=== PATIENT | male | born 1970 | race African-American/Black ===

== ENCOUNTER 2017-01-27 11:29 | Emergency (ER) | payer OTHER ==
[2017-01-27] MEDS ORDERED: Sodium Chloride 0.9% 2.5 ML Syringe FLUSH PRN (12:24)
[2017-01-27] MEDS ORDERED: Sodium Chloride 0.9% 10 ML Syringe FLUSH PRN (12:24)
[2017-01-27] MEDS ORDERED: Sodium Chloride 0.9% 1,000 ML IV ONE (12:24)
--- NOTE | 2017-01-27 12:24 | EDM.PDOC ---
ED HPI GENERAL MEDICAL PROBLEM - General Chief Complaint: Gastrointestinal Problem Stated Complaint: STOMACH/COLD Time Seen by Provider: 01/27/17 11:42 Source of Information: Reports: Patient History Limitations: Reports: No Limitations - History of Present Illness INITIAL COMMENTS - FREE TEXT/NARRATIVE: History of present illness: [] Had a five-day history of diarrhea as watery and nonbloody having proximally 5 episodes a day. He states whenever he eats he has diarrheal within an hour. He denies any nausea or vomiting or fevers but does have chills. Review of systems: As per history of present illness and below otherwise all systems reviewed and negative. Past medical history: As per history of present illness and as reviewed below otherwise noncontributory. Surgical history: As per history of present illness and as reviewed below otherwise noncontributory. Social history: No reported history of drug or alcohol abuse. Family history: As per history of present illness and as reviewed below otherwise noncontributory. Physical exam: General: Well developed, well nourished in NAD HEENT: Atraumatic, normocephalic, pupils reactive, negative for conjunctival pallor or scleral icterus, mucous membranes moist, throat clear, neck supple, nontender, trachea midline. Lungs: Clear to auscultation, breath sounds equal bilaterally, chest nontender. Heart: S1S2, regular, negative for clicks, rubs, or JVD. Abdomen: Soft, nondistended, nontender. Negative for masses or hepatosplenomegaly. Negative for costovertebral tenderness. Pelvis: Stable nontender. Genitourinary: Deferred. Rectal: Deferred. Extremities: Atraumatic, negative for cords or calf pain. Neurovascular unremarkable. Neuro: Awake, alert, oriented. Cranial nerves II through XII unremarkable. Cerebellum unremarkable. Motor and sensory unremarkable throughout. Exam nonfocal. Diagnostics: [] Labs were checked patient was unable to sample in the ED. Therapeutics: [] Normal saline 1 L and will await results. No diarrhea While in the ED Impression: [] Diarrhea Plan: [] Stool culture kit given take, Imodium as directed followup with PMD increase fluids. Definitive disposition and diagnosis as appropriate pending reevaluation and review of above. Treatments POT SANDER: Reports: Acetaminophen Abdominal Pain Score (Numeric/FACES): 7 - Related Data Allergies Allergy/AdvReac Type Severity Reaction Status Date / Time ibuprofen Allergy Stomach Verified 02/18/15 15:19 Ache Home Meds: Home Meds Acetaminophen [Tylenol Extra Strength] 1,000 mg PO Q6H 01/27/17 [History] Past Medical History Gastrointestinal History: Reports: Other (See Below) Other Gastrointestinal History: gastrointestinal issue, had an egd in 2014, unable to explain exactly what it was for. Psychiatric History: Reports: Anxiety, Other (See Below) Other Psychiatric History: when he lived in [place], heart beating fast, gave him medications - Infectious Disease History Infectious Disease History: Reports: Chicken Pox - Past Surgical History GI Surgical History: Reports: Hernia, Inguinal Social & Family History - Family History Family Medical History: Noncontributory - Tobacco Use Smoking Status *Q: Never Smoker Second Hand Smoke Exposure: No - Caffeine Use Caffeine Use: Reports: Soda - Alcohol Use Days Per Week of Alcohol Use: 0 - Recreational Drug Use Recreational Drug Use: No ED ROS GENERAL - Review of Systems Review Of Systems: See Below (See history of present illness) ED EXAM, GI/ABD - Physical Exam Exam: See Below (See history of present illness) Course - Vital Signs Last Recorded V/S: Last Vital Signs Temp 36.9 C 01/27/17 11:59 Pulse 68 01/27/17 11:59 Resp 20 01/27/17 11:59 BP 114/55 L 01/27/17 11:59 Pulse Ox 97 01/27/17 11:59 - Orders/Labs/Meds Orders: Active Orders 24 hr Category Date Time Status CULTURE STOOL [RM] Stat Lab 01/27/17 12:21 Uncollected WBC, STOOL [OP] Stat Lab 01/27/17 12:22 Uncollected Sodium Chloride 0.9% [Saline Flush] Med 01/27/17 12:24 Active 10 ml FLUSH ASDIRECTED PRN Sodium Chloride 0.9% [Saline Flush] Med 01/27/17 12:24 Active 2.5 ml FLUSH ASDIRECTED PRN Peripheral IV Insertion Adult [OM.PC] Stat Oth 01/27/17 12:24 Ordered Medication Orders Sodium Chloride (Saline Flush) 10 ml FLUSH ASDIRECTED PRN PRN Reason: Keep Vein Open Sodium Chloride (Saline Flush) 2.5 ml FLUSH ASDIRECTED PRN PRN Reason: Keep Vein Open Labs: Laboratory Tests 01/27/17 01/27/17 Range/Units 12:35 12:35 WBC 6.18 (4.0-11.0) K/uL RBC 5.28 (4.50-5.90) M/uL Hgb 12.1 L (13.0-17.0) g/dL Hct 38.5 (38.0-50.0) % MCV 72.9 L (80.0-98.0) fL MCH 22.9 L (27.0-32.0) pg MCHC 31.4 (31.0-37.0) g/dL RDW Std Deviation 38.4 (28.0-62.0) fl RDW Coeff of Jona 15 (11.0-15.0) % Plt Count 207 (150-400) K/uL MPV 9.40 (7.40-12.00) fL Neut % (Auto) 38.6 L (48.0-80.0) % Lymph % (Auto) 51.1 H (16.0-40.0) % [place] % (Auto) 9.2 (0.0-15.0) % Eos % (Auto) 0.8 (0.0-7.0) % Baso % (Auto) 0.3 (0.0-1.5) % Neut # (Auto) 2.4 (1.4-5.7) K/uL Lymph # (Auto) 3.2 H (0.6-2.4) K/uL [place] # (Auto) 0.6 (0.0-0.8) K/uL Eos # (Auto) 0.1 (0.0-0.7) K/uL Baso # (Auto) 0.0 (0.0-0.1) K/uL Nucleated RBC % 0.0 /100WBC Nucleated RBCs # 0 K/uL Sodium 140 (136-146) mmol/L Potassium 4.1 (3.5-5.1) mmol/L Chloride 107 (98-110) mmol/L Carbon Dioxide 25 (21-31) mmol/L BUN 10 (6.0-23.0) mg/dL Creatinine 1.1 (0.6-1.5) mg/dL Est Cr Clr Drug Dosing 76.78 mL/min Estimated GFR (MDRD) > 60.0 ml/min Glucose 93 (60-110) mg/dL Calcium 8.9 (8.8-10.8) mg/dL Total Bilirubin 0.6 (0.1-1.5) mg/dL AST 23 (5-40) IU/L ALT 22 (8-54) IU/L Alkaline Phosphatase 77 (40-150) Total Protein 7.5 (6.0-8.0) g/dL Albumin 4.0 (3.5-5.0) g/dL Globulin 3.5 (2.0-3.5) g/dL Albumin/Globulin Ratio 1.1 L (1.3-2.8) Meds: Medications Generic Name Dose Route Start Last Admin Trade Name Freq PRN Reason Stop Dose Admin Sodium Chloride 10 ml 01/27/17 12:24 Saline Flush FLUSH ASDIRECTED PRN Keep Vein Open Sodium Chloride 2.5 ml 01/27/17 12:24 Saline Flush FLUSH ASDIRECTED PRN Keep Vein Open Discontinued Medications Generic Name Dose Route Start Last Admin Trade Name Freq PRN Reason Stop Dose Admin Sodium Chloride 1,000 mls @ 999 mls/hr 01/27/17 12:24 01/27/17 12:53 Normal Saline IV 01/27/17 13:24 999 mls/hr .Bolus ONE Administration Departure - Departure Time of Disposition: 14:01 Disposition: Home, Self-Care 01 Condition: good Clinical Impression: Diarrhea Qualifiers: Diarrhea type: infectious Qualified Code(s): A09 - Infectious gastroenteritis and colitis, unspecified - Discharge Information Referrals: PCP,None [Primary Care Provider] - Forms: ED Department Discharge Additional Instructions: The following information is given to patients seen in the emergency department who are being discharged to home. This information is to outline your options for follow-up care. We provide all patients seen in our emergency department with a follow-up referral. The need for follow-up, as well as the timing and circumstances, are variable depending upon the specifics of your emergency department visit. If you don't have a primary care physician on staff, we will provide you with a referral. We always advise you to contact your personal physician following an emergency department visit to inform them of the circumstance of the visit and for follow-up with them and/or the need for any referrals to a consulting specialist. The emergency department will also refer you to a specialist when appropriate. This referral assures that you have the opportunity for follow-up care with a specialist. All of these measure are taken in an effort to provide you with optimal care, which includes your follow-up. Under all circumstances we always encourage you to contact your private physician who remains a resource for coordinating your care. When calling for follow-up care, please make the office aware that this follow-up is from your recent emergency room visit. If for any reason you are refused follow-up, please contact the [facility] Emergency Department at and asked to speak to the emergency department charge nurse. Imodium as directed, increase fluids, follow up with primary care, and stool sample to the lab when possible [facility] [address] [place] [id number] - My Orders Last 24 Hours: My Active Orders 01/27/17 12:21 CULTURE STOOL [RM] Stat 01/27/17 12:22 WBC, STOOL [OP] Stat 01/27/17 12:24 Sodium Chloride 0.9% [Saline Flush] 10 ml FLUSH ASDIRECTED PRN Sodium Chloride 0.9% [Saline Flush] 2.5 ml FLUSH ASDIRECTED PRN Peripheral IV Insertion Adult [OM.PC] Stat - Assessment/Plan Last 24 Hours: My Active Orders 01/27/17 12:21 CULTURE STOOL [RM] Stat 01/27/17 12:22 WBC, STOOL [OP] Stat 01/27/17 12:24 Sodium Chloride 0.9% [Saline Flush] 10 ml FLUSH ASDIRECTED PRN Sodium Chloride 0.9% [Saline Flush] 2.5 ml FLUSH ASDIRECTED PRN Peripheral IV Insertion Adult [OM.PC] Stat
[2017-01-27 13:08] LABS: CHLORIDE,CL 107 mmol/L (98-110); SODIUM,NA 140 mmol/L (136-146)
[2017-01-27 14:23] VITALS: BP 116/68
== END 2017-01-27 14:10 | disposition home or self-care (01) ==
LOC: MW.ED 11:29
DX: A09 Infectious gastroenteritis and colitis, unspecified (principal); F41.9 Anxiety disorder, unspecified; Z88.6 Allergy status to analgesic agent
CPT/HCPCS: 36415; 80053; 85025; 96360; 99284; J7040; 99283

== ENCOUNTER 2017-12-29 10:41 | Emergency (ER) | payer SELFPAY ==
[2017-12-29] MEDS ORDERED: Aspirin 81 MG Tab.Chew PO ONE (10:53)
[2017-12-29] MEDS ORDERED: Sodium Chloride 0.9% 1,000 ML IV ONE (10:53)
[2017-12-29] MEDS ORDERED: Alum Hydrox/Mag Hydrox/Simeth 15 ML, Lidocaine 2% 5 ML PO ONE ×2 (10:58)
--- NOTE | 2017-12-29 10:58 | EDM.PDOC ---
ED HPI GENERAL MEDICAL PROBLEM - General Chief Complaint: Chest Pain Stated Complaint: CHEST PAIN Time Seen by Provider: 12/29/17 10:55 Source of Information: Reports: Patient History Limitations: Reports: No Limitations - History of Present Illness INITIAL COMMENTS - FREE TEXT/NARRATIVE: HISTORY AND PHYSICAL: History of present illness: Patient is a 47-year-old male who presents to the emergency room today with complaints of right shoulder/arm pain 3 weeks and midsternal chest pain for the past 3 days. He reports that he has a history of GERD and is unsure if his chest pain is related to acid reflux. Reports nothing improves or makes the pain worse. He denies any fever, chills, shortness of breath, diaphoresis, cough , abdominal pain, nausea, vomiting, diarrhea or constipation. No cardiac or respiratory history. No history of smoking. Review of systems: As per history of present illness and below otherwise all systems reviewed and negative. Past medical history: As per history of present illness and as reviewed below otherwise noncontributory. Surgical history: As per history of present illness and as reviewed below otherwise noncontributory. Social history: No reported history of drug or alcohol abuse. Family history: As per history of present illness and as reviewed below otherwise noncontributory. Physical exam: General: Well-developed and well-nourished 47-year-old -[place] African male. Alert and oriented. Nontoxic appearing and in no acute distress. HEENT: Atraumatic, normocephalic, pupils equal and reactive bilaterally, negative for conjunctival pallor or scleral icterus, mucous membranes moist, throat clear, neck supple, nontender, trachea midline. No drooling or trismus noted. No meningeal signs Lungs: Clear to auscultation, breath sounds equal bilaterally, chest nontender. Non-reproducible. Heart: S1S2, regular rate and rhythm without overt murmur Abdomen: Soft, nondistended, nontender. Negative for masses or hepatosplenomegaly. Negative for costovertebral tenderness. Pelvis: Stable nontender. Genitourinary: Deferred. Rectal: Deferred. Skin: Intact, warm, dry. No lesions or rashes noted. Extremities: Atraumatic, moves all extremities per self without pain or difficulty negative for cords or calf pain. Neurovascular unremarkable. Neuro: Awake, alert, oriented. Cranial nerves II through XII unremarkable. Cerebellum unremarkable. Motor and sensory unremarkable throughout. Exam nonfocal. Notes: Ibuprofen is not a true allergy, he states he gets an "upset stomach". Will give ASA per our chest pain protocol. Lab, EKG and chest x-ray are unremarkable. I did share this with the patient. I cannot differentiate if his pain is due to musculoskeletal involvement. Discussed admission with the patient, he would like to stay overnight. Dr. Saenz will be consulted [id number]:Dr. Saenz was consulted on this case. He is agreeable to keeping the patient for observation with telemetry. Diagnostics: CBC, CMP, troponin, EKG, one view chest x-ray Therapeutics: IV fluid, GI cocktail, aspirin, nitroglycerin, nitro paste, Toradol Impression: Chest pain rule out [place] Plan: Observation admission to [facility] with telemetry Definitive disposition and diagnosis as appropriate pending reevaluation and review of above. Chest Pain Score (Numeric/FACES): 4 - Related Data Allergies Allergy/AdvReac Type Severity Reaction Status Date / Time ibuprofen Allergy Stomach Verified 12/29/17 10:51 Ache Home Meds: Home Meds Acetaminophen [Tylenol Extra Strength] 1,000 mg PO Q6H PRN 01/27/17 [History] Past Medical History Gastrointestinal History: Reports: Other (See Below) Other Gastrointestinal History: gastrointestinal issue, had an egd in 2014, unable to explain exactly what it was for. Psychiatric History: Reports: Anxiety, Other (See Below) Other Psychiatric History: when he lived in [place], heart beating fast, gave him medications - Infectious Disease History Infectious Disease History: Reports: Chicken Pox - Past Surgical History GI Surgical History: Reports: Hernia, Inguinal Social & Family History - Family History Family Medical History: Noncontributory - Tobacco Use Smoking Status *Q: Never Smoker Second Hand Smoke Exposure: No - Caffeine Use Caffeine Use: Reports: Soda - Alcohol Use Days Per Week of Alcohol Use: 0 - Recreational Drug Use Recreational Drug Use: No ED ROS GENERAL - Review of Systems Review Of Systems: ROS reveals no pertinent complaints other than HPI. ED EXAM, GENERAL - Physical Exam Exam: See Below (See dictation) Course - Vital Signs Last Recorded V/S: Last Vital Signs Temp 97.2 F 12/29/17 10:48 Pulse 98 12/29/17 10:48 Resp 20 12/29/17 10:48 BP 128/76 04/16/18 11:36 Pulse Ox 98 12/29/17 10:48 - Orders/Labs/Meds Orders: Active Orders 24 hr Category Date Time Status Admission Status [Patient Status] [ADT] Stat ADT 12/29/17 11:45 Ordered EKG Documentation Completion [RC] STAT Care 12/29/17 10:52 Active Sodium Chloride 0.9% [Normal Saline] 1,000 ml Med 12/29/17 10:53 Active IV STAT Medication Orders Sodium Chloride (Normal Saline) 1,000 mls @ 999 mls/hr IV STAT ONE Stop: 12/29/17 11:53 Last Admin: 12/29/17 11:02 Dose: 999 mls/hr Labs: Laboratory Tests 12/29/17 12/29/17 Range/Units 10:45 10:45 WBC 6.93 (4.0-11.0) K/uL RBC 5.57 (4.50-5.90) M/uL Hgb 12.8 L (13.0-17.0) g/dL Hct 39.9 (38.0-50.0) % MCV 71.6 L (80.0-98.0) fL MCH 23.0 L (27.0-32.0) pg MCHC 32.1 (31.0-37.0) g/dL RDW Std Deviation 35.2 (28.0-62.0) fl RDW Coeff of Jona 14 (11.0-15.0) % Plt Count 202 (150-400) K/uL MPV 9.70 (7.40-12.00) fL Neut % (Auto) 29.8 L (48.0-80.0) % Lymph % (Auto) 57.9 H (16.0-40.0) % Gregory % (Auto) 10.0 (0.0-15.0) % Eos % (Auto) 1.9 (0.0-7.0) % Baso % (Auto) 0.4 (0.0-1.5) % Neut # (Auto) 2.1 (1.4-5.7) K/uL Lymph # (Auto) 4.0 H (0.6-2.4) K/uL Gregory # (Auto) 0.7 (0.0-0.8) K/uL Eos # (Auto) 0.1 (0.0-0.7) K/uL Baso # (Auto) 0.0 (0.0-0.1) K/uL Nucleated RBC % 0.0 /100WBC Nucleated RBCs # 0 K/uL Sodium 139 (136-148) mmol/L Potassium 4.0 (3.5-5.1) mmol/L Chloride 105 (98-107) mmol/L Carbon Dioxide 25.9 (21.0-32.0) mmol/L BUN 10 (7.0-18.0) mg/dL Creatinine 1.1 (0.8-1.3) mg/dL Est Cr Clr Drug Dosing 73.31 mL/min Estimated GFR (MDRD) > 60.0 ml/min Glucose 110 H (74-106) mg/dL Calcium 8.7 (8.5-10.1) mg/dL Total Bilirubin 0.4 (0.2-1.0) mg/dL AST 26 (15-37) IU/L ALT 30 (14-63) IU/L Alkaline Phosphatase 83 (46-116) U/L Troponin I < 0.050 (0.000-0.056) ng/mL Total Protein 7.6 (6.4-8.2) g/dL Albumin 3.7 (3.4-5.0) g/dL Globulin 3.9 H (2.0-3.5) g/dL Albumin/Globulin Ratio 1.0 L (1.3-2.8) Meds: Medications Generic Name Dose Route Start Last Admin Trade Name Freq PRN Reason Stop Dose Admin Sodium Chloride 1,000 mls @ 999 mls/hr 12/29/17 10:53 12/29/17 11:02 Normal Saline IV 12/29/17 11:53 999 mls/hr STAT ONE Administration Discontinued Medications Generic Name Dose Route Start Last Admin Trade Name Freq PRN Reason Stop Dose Admin Aspirin 324 mg 12/29/17 10:53 12/29/17 11:13 Aspirin PO 12/29/17 10:54 324 mg ONETIME ONE Administration Al Hydroxide/Mg Hydroxide 15 0 ml 12/29/17 10:58 12/29/17 11:10 ml/ Lidocaine HCl 5 ml PO 12/29/17 10:59 20 each ONETIME ONE Administration Ketorolac Tromethamine 30 mg 12/29/17 11:44 Toradol IVPUSH 12/29/17 11:45 ONETIME ONE Nitroglycerin 0.4 mg 12/29/17 10:53 12/29/17 11:32 Nitrostat SL 0.4 mg Q5M PRN Administration Chest Pain Nitroglycerin 1 gm 12/29/17 11:44 Nitro-Bid 2% TOP 12/29/17 11:45 ONETIME ONE Departure - Departure Time of Disposition: 11:48 Disposition: Home, Self-Care 01 Clinical Impression: Chest pain, rule out acute myocardial infarction Forms: ED Department Discharge - My Orders Last 24 Hours: My Active Orders 12/29/17 10:52 EKG Documentation Completion [RC] STAT 12/29/17 10:53 Sodium Chloride 0.9% [Normal Saline] 1,000 ml IV STAT 12/29/17 11:45 Admission Status [Patient Status] [ADT] Stat - Assessment/Plan Last 24 Hours: My Active Orders 12/29/17 10:52 EKG Documentation Completion [RC] STAT 12/29/17 10:53 Sodium Chloride 0.9% [Normal Saline] 1,000 ml IV STAT 12/29/17 11:45 Admission Status [Patient Status] [ADT] Stat
[2017-12-29] MEDS: Nitroglycerin 0.4 MG Tab.SL SL PRN ×3 (11:21→11:32)
[2017-12-29 11:33] LABS: CHLORIDE,CL 105 mmol/L (98-107); SODIUM,NA 139 mmol/L (136-148)
--- NOTE | 2017-12-29 11:39 | CR ---
EXAMINATION: Portable chest radiograph. HISTORY: Chest pain. FINDINGS: The trachea is midline. The cardiomediastinal silhouette is within normal limits. No pulmonary infilt rates, effusions or pneumothorax. Osseous structures appear unremarkable. IMPRESSION: No acute cardiopulmonary process.
[2017-12-29] MEDS ORDERED: Nitroglycerin 2% Oint 1 GM UD Packet TOP ONE (11:44)
[2017-12-29] MEDS ORDERED: Ketorolac 30 MG/ML SDV IVPUSH ONE (11:44)
[2017-12-29 13:48] VITALS: BP 143/84
== END 2017-12-29 12:10 | disposition home or self-care (01) ==
LOC: MW.ED 10:41
DX: R07.9 Chest pain, unspecified (principal); Z88.6 Allergy status to analgesic agent
CPT/HCPCS: 36415; 71045; 80053; 84484; 85025; 96361; 96374; 99285; A9270; J1885; J7040

== ENCOUNTER 2018-11-11 09:48 | Emergency (ER) | payer OTHER, BC ==
[2018-11-11] MEDS ORDERED: Ketorolac 60 MG/2 ML SDV IM ONE (10:07)
--- NOTE | 2018-11-11 10:09 | EDM.PDOC ---
ED HPI GENERAL MEDICAL PROBLEM - General Chief Complaint: Upper Extremity Injury/Pain Stated Complaint: RIGHT SHOULDER PAIN Time Seen by Provider: 11/11/18 10:03 Source of Information: Reports: Patient History Limitations: Reports: No Limitations - History of Present Illness INITIAL COMMENTS - FREE TEXT/NARRATIVE: HISTORY AND PHYSICAL: History of present illness: Patient is a 48-year-old male here with complaint of right shoulder pain x 3-4 days. He states denies injury or trauma but states he does a lot of heaving lifting at work. He reports pain increased last night prompting him to come in to the ED. He did take an aleve last night which helped. He denies distal pain, numbness, or tingling. Review of systems: As per history of present illness and below otherwise all systems reviewed and negative. Past medical history: As per history of present illness and as reviewed below otherwise noncontributory. Surgical history: As per history of present illness and as reviewed below otherwise noncontributory. Social history: No reported history of drug or alcohol abuse. Family history: As per history of present illness and as reviewed below otherwise noncontributory. Physical exam: General: Patient sitting comfortably in no acute distress and nontoxic appearing HEENT: Atraumatic, normocephalic, pupils reactive, negative for conjunctival pallor or scleral icterus, mucous membranes moist, throat clear, neck supple, nontender, trachea midline. No meningeal signs. Lungs: Clear to auscultation, breath sounds equal bilaterally, chest nontender. Heart: S1S2, regular, negative for clicks, rubs, or overt murmur. Abdomen: Soft, nondistended, nontender. Negative for masses or hepatosplenomegaly. Negative for costovertebral tenderness. Pelvis: Stable nontender. Genitourinary: Deferred. Rectal: Deferred. Extremities: Pain to palpation of anterior right shoulder near AC joint. He has full ROM of the shoulder and reports pain with adduction and internal rotation. [employer] strength 5/5 bilaterally. Atraumatic, negative for cords or calf pain. Neurovascular unremarkable. Neuro: Awake, alert, oriented. Cranial nerves II through XII unremarkable. Cerebellum unremarkable. Motor and sensory unremarkable throughout. Exam nonfocal. Notes: Diagnostics: x-ray right shoulder Therapeutics: Toradol 60mg IM Prescriptions: Impression: Right shoulder pain Plan: 1. Ice, motrin or tylenol as needed 2. Follow up with orthopedics, call the number provided to schedule an appointment 3. Return to ED as needed as discussed Definitive disposition and diagnosis as appropriate pending reevaluation and review of above. Right Shoulder Pain Score (Numeric/FACES): 6 - Related Data Allergies Allergy/AdvReac Type Severity Reaction Status Date / Time ibuprofen Allergy Stomach Verified 11/11/18 09:58 Ache Home Meds: Home Meds Acetaminophen [Tylenol Extra Strength] 1,000 mg PO Q6H PRN 01/27/17 [History] Meclizine [Antivert] 25 mg PO Q6H PRN #30 tab.chew 06/22/18 [Rx] Past Medical History Gastrointestinal History: Reports: Other (See Below) Other Gastrointestinal History: gastrointestinal issue, had an egd in 2014, unable to explain exactly what it was for. Psychiatric History: Reports: Anxiety, Other (See Below) Other Psychiatric History: when he lived in [place], heart beating fast, gave him medications - Infectious Disease History Infectious Disease History: Reports: Chicken Pox - Past Surgical History GI Surgical History: Reports: Hernia, Inguinal Social & Family History - Family History Family Medical History: Noncontributory - Tobacco Use Smoking Status *Q: Never Smoker - Caffeine Use Caffeine Use: Reports: Soda - Recreational Drug Use Recreational Drug Use: No Review of Systems - Review of Systems Review Of Systems: ROS reveals no pertinent complaints other than HPI. ED EXAM, GENERAL - Physical Exam Exam: See Below (see dictation) Course - Vital Signs Last Recorded V/S: Last Vital Signs Temp 97.8 F 11/11/18 09:54 Pulse 59 L 11/11/18 09:54 Resp 16 11/11/18 09:54 BP 143/83 H 11/11/18 09:54 Pulse Ox 94 L 11/11/18 09:54 - Orders/Labs/Meds Meds: Medications Discontinued Medications Generic Name Dose Route Start Last Admin Trade Name Freq PRN Reason Stop Dose Admin Ketorolac Tromethamine 60 mg 11/11/18 10:07 11/11/18 10:47 Toradol IM 11/11/18 10:08 60 mg ONETIME ONE Administration Departure - Departure Time of Disposition: 10:54 Disposition: Home, Self-Care 01 Condition: Good Clinical Impression: Right shoulder pain - Discharge Information Referrals: PCP,None [Primary Care Provider] - Forms: ED Department Discharge Additional Instructions: The following information is given to patients seen in the emergency department who are being discharged to home. This information is to outline your options for follow-up care. We provide all patients seen in our emergency department with a follow-up referral. The need for follow-up, as well as the timing and circumstances, are variable depending upon the specifics of your emergency department visit. If you don't have a primary care physician on staff, we will provide you with a referral. We always advise you to contact your personal physician following an emergency department visit to inform them of the circumstance of the visit and for follow-up with them and/or the need for any referrals to a consulting specialist. The emergency department will also refer you to a specialist when appropriate. This referral assures that you have the opportunity for follow-up care with a specialist. All of these measure are taken in an effort to provide you with optimal care, which includes your follow-up. Under all circumstances we always encourage you to contact your private physician who remains a resource for coordinating your care. When calling for follow-up care, please make the office aware that this follow-up is from your recent emergency room visit. If for any reason you are refused follow-up, please contact the [facility] Emergency Department at and asked to speak to the emergency department charge nurse. [facility] [address], [address] [place] [address] 1. Ice, motrin or tylenol as needed 2. Follow up with orthopedics, call the number provided to schedule an appointment 3. Return to ED as needed as discussed
--- NOTE | 2018-11-11 10:52 | CR ---
EXAMINATION: Right shoulder HISTORY: Pain COMPARISON: None TECHNIQUE: 3 views FINDINGS/IMPRESSION: There is no acute osseous abnormality, dislocation, or fracture. Bone mineralization and joint spaces are preserved. Mild acromioclavicular osteoarthritic changes.
[2018-11-11 11:37] VITALS: BP 144/93
== END 2018-11-11 11:05 | disposition home or self-care (01) ==
LOC: MW.ED 09:48
DX: M25.511 Pain in right shoulder (principal); Z88.6 Allergy status to analgesic agent
CPT/HCPCS: 73030; 96372; 99283; J1885

== ENCOUNTER 2020-05-16 12:51 | Emergency (ER) | payer SELFPAY ==
--- NOTE | 2020-05-16 13:27 | EDM.PDOC ---
ED HPI GENERAL MEDICAL PROBLEM - General Chief Complaint: Gastrointestinal Problem Stated Complaint: ACID REFLUX Time Seen by Provider: 05/16/20 13:05 Source of Information: Reports: Patient History Limitations: Reports: No Limitations - History of Present Illness INITIAL COMMENTS - FREE TEXT/NARRATIVE: Notes to the emergency room reporting "acid reflux". The patient states that "when I think too much" I get acid reflux. He states that he has been having trouble with his landlord and his living arrangements. This is causing him anxiety which precipitates acid reflux. He states that he took some Mylanta and some Tylenol but still has some epigastric pain that radiates over to the right axilla. He denies shortness of breath, sweating, nausea, radiation of the pain to the back neck or arms. He has had this problem before. He has no other medical problems. Note, the patient states that he got his omeprazole from a friend and has not been taking it in the last couple of days. right side of chest Pain Score (Numeric/FACES): 5 - Related Data Allergies Allergy/AdvReac Type Severity Reaction Status Date / Time ibuprofen Allergy Stomach Verified 05/16/20 13:03 Ache Home Meds: Home Meds Acetaminophen [Tylenol Extra Strength] 1,000 mg PO Q6H PRN 01/27/17 [History] Esomeprazole Magnesium [Nexium 24Hr] 20 mg PO DAILY #14 tablet. 05/16/20 [Rx] Mag Hydrox/Aluminum Hyd/Simeth [Mylanta Maximum Strength Liq] 30 ml PO ASDIRECTED 05/16/20 [History] Omeprazole mg PO DAILY 05/16/20 [History] Past Medical History Gastrointestinal History: Reports: GERD, Other (See Below) Other Gastrointestinal History: gastrointestinal issue, had an egd in 2014, unable to explain exactly what it was for. Psychiatric History: Reports: Anxiety, Other (See Below) Other Psychiatric History: when he lived in [place], heart beating fast, gave him medications - Infectious Disease History Infectious Disease History: Reports: Chicken Pox - Past Surgical History GI Surgical History: Reports: Hernia, Inguinal Social & Family History - Family History Family Medical History: Noncontributory - Tobacco Use Smoking Status *Q: Never Smoker - Caffeine Use Caffeine Use: Reports: None - Recreational Drug Use Recreational Drug Use: No ED ROS GENERAL - Review of Systems Review Of Systems: Comprehensive ROS is negative, except as noted in HPI. ED EXAM, GI/ABD - Physical Exam Exam: See Below Exam Limited By: No Limitations General Appearance: Alert, No Apparent Distress Ears: Normal External Exam Nose: Normal Inspection Throat/Mouth: Normal Inspection Head: Atraumatic, Normocephalic Neck: Normal Inspection Respiratory/Chest: No Respiratory Distress, Lungs Clear, Normal Breath Sounds Cardiovascular: Normal Peripheral Pulses, Regular Rate, Rhythm GI/Abdominal Exam: Soft, Non-Tender, No Distention Back Exam: Normal Inspection Extremities: Normal Inspection Neurological: Alert, Oriented, Normal Cognition Psychiatric: Normal Affect, Normal Mood Skin Exam: Warm, Dry, Intact, Normal Color, No Rash Lymphatic: No Adenopathy Course - Vital Signs Last Recorded V/S: Last Vital Signs Temp 35.6 C L 05/16/20 13:03 Pulse 56 L 05/16/20 13:03 Resp 17 05/16/20 13:03 BP 161/95 H 05/16/20 13:03 Pulse Ox 98 05/16/20 13:03 - Orders/Labs/Meds Labs: Laboratory Tests 05/16/20 Range/Units 13:34 Sodium 137 (136-148) mmol/L Potassium 3.7 (3.5-5.1) mmol/L Chloride 103 (98-107) mmol/L Carbon Dioxide 25.2 (21.0-32.0) mmol/L BUN 14 (7.0-18.0) mg/dL Creatinine 1.1 (0.8-1.3) mg/dL Est Cr Clr Drug Dosing 71.69 mL/min Estimated GFR (MDRD) > 60.0 ml/min Glucose 108 H (74-106) mg/dL Calcium 8.9 (8.5-10.1) mg/dL Troponin I < 0.050 (0.000-0.056) ng/mL - Re-Assessments/Exams Free Text/Narrative Re-Assessment/Exam: 05/16/20 14:22 The patient states that actually his pain was pretty good here in the emergency room and that he has none now. He states he mostly gets at night when he lays down and sometimes he gets an ice pack and puts it on his chest along with taking a dose of Mylanta. Departure - Departure Time of Disposition: 14:23 Disposition: Home, Self-Care 01 Condition: Good Clinical Impression: GERD (gastroesophageal reflux disease) Qualifiers: Esophagitis presence: esophagitis presence not specified Qualified Code(s): K21.9 - Gastro-esophageal reflux disease without esophagitis - Discharge Information Referrals: PCP,None [Primary Care Provider] - [facility] [Outside] [facility] [Outside] Forms: ED Department Discharge Additional Instructions: The following information is given to patients seen in the emergency department who are being discharged to home. This information is to outline your options for follow-up care. We provide all patients seen in our emergency department with a follow-up referral. The need for follow-up, as well as the timing and circumstances, are variable depending upon the specifics of your emergency department visit. If you don't have a primary care physician on staff, we will provide you with a referral. We always advise you to contact your personal physician following an emergency department visit to inform them of the circumstance of the visit and for follow-up with them and/or the need for any referrals to a consulting specialist. The emergency department will also refer you to a specialist when appropriate. This referral assures that you have the opportunity for follow-up care with a specialist. All of these measure are taken in an effort to provide you with optimal care, which includes your follow-up. Under all circumstances we always encourage you to contact your private physician who remains a resource for coordinating your care. When calling for follow-up care, please make the office aware that this follow-up is from your recent emergency room visit. If for any reason you are refused follow-up, please contact the [facility] Emergency Department at and asked to speak to the emergency department charge nurse. 1. You may take Mylanta for your acid reflux symptoms 2. Take your Nexium before breakfast with a glass of water 3. Follow-up in primary care to evaluate your anxiety and GERD as we discussed. Anxiety producing situations along with lying flat precipitate your symptoms. Sepsis Event Note (ED) - Evaluation Sepsis Screening Result: No Definite Risk - Focused Exam Vital Signs: Vital Signs Temp Pulse Resp BP Pulse Ox 05/16/20 13:03 35.6 C L 56 L 17 161/95 H 98
[2020-05-16 14:09] LABS: BLOOD UREA NITROGEN,BUN 14 mg/dL (7.0-18.0); CARBON DIOXIDE,CO2 25.2 mmol/L (21.0-32.0); CHLORIDE,CL 103 mmol/L (98-107); GLUCOSE RANDOM 108 mg/dL (74-106); POTASSIUM,K 3.7 mmol/L (3.5-5.1); SODIUM,NA 137 mmol/L (136-148)
[2020-05-16 15:15] VITALS: BP 165/95; PULSE 57
== END 2020-05-16 14:36 | disposition home or self-care (01) ==
LOC: MW.ED 12:51
DX: K21.9 Gastro-esophageal reflux disease without esophagitis (principal); Z88.6 Allergy status to analgesic agent; Z79.899 Other long term (current) drug therapy
CPT/HCPCS: 36415; 80048; 84484; 93005; 99282; 99284-25

== ENCOUNTER 2020-12-11 10:58 | Emergency (ER) | payer BC, OTHER ==
[2020-12-11 11:07] VITALS: BP 146/78; PULSE 70
--- NOTE | 2020-12-11 11:17 | EDM.PDOC ---
ED HPI GENERAL MEDICAL PROBLEM - General Chief Complaint: Cardiovascular Problem Stated Complaint: HIGH BP Time Seen by Provider: 12/11/20 11:07 Source of Information: Reports: Patient History Limitations: Reports: No Limitations - History of Present Illness INITIAL COMMENTS - FREE TEXT/NARRATIVE: HISTORY AND PHYSICAL: History of present illness: Patient is a 50-year-old male who presents to the emergency room with concerns of an elevated blood pressure reading. He states he was at [facility] and chose to have his blood pressure checked and states it was 140s over 80s. The i nformation on the machine states he should have this reevaluated by his doctor. He states he does not have a primary care doctor so he decided to come to the emergency room for further evaluation. He denies any concerns or symptoms related to his visit today. Patient denies any fever, chills, headache, change in vision, syncope or near syncope. Denies any chest pain, back pain, shortness of breath or cough. Denies any abdominal pain, nausea, vomiting, diarrhea, constipation or dysuria. Has not noted any blood in urine or stool. Patient has been eating and drinking appropriately. No personal history of heart disease or sudden cardiac in family. Review of systems: As per history of present illness and below otherwise all systems reviewed and negative. Past medical history: As per history of present illness and as reviewed below otherwise noncontributory. Surgical history: As per history of present illness and as reviewed below otherwise noncontributory. Social history: See social history for further information Family history: As per history of present illness and as reviewed below otherwise noncontributory. Physical exam: General: Well developed and well nourished 50-year-old black male. Alert and orientated x 3. Nontoxic in appearance and in no acute distress. Vital signs are stable and have been reviewed by me. Nursing notes were reviewed. HEENT: Atraumatic, normocephalic, pupils equal and reactive bilaterally, negative for conjunctival pallor or scleral icterus, mucous membranes moist, TMs normal bilaterally, throat clear, neck supple, nontender, trachea midline. No drooling or trismus noted. No meningeal signs. No hot potato voice noted. Lungs: Clear to auscultation bilaterally. No wheezes, rales, or rhonchi. Chest nontender. Normal work of breathing, no accessory muscles used. Heart: S1S2, regular rate and rhythm without overt murmur, gallops, or rubs. No JVD. No peripheral edema Abdomen: Soft, nondistended, nontender. Normoactive bowel sounds. Negative for masses or costovertebral tenderness. Pelvis: Stable nontender. Genitourinary/Rectal: Deferred. Skin: Intact, warm, dry. No lesions or rashes noted. Hematologic: No petechiae or purpra. Mucosa appropriate color and normal nail bed color and refill. Extremities: Atraumatic, moves all extremities per self without difficulty or deficits, negative for cords or calf pain. Neurovascular unremarkable. Neuro: Awake, alert, oriented. Cranial nerves II through XII unremarkable. Cerebellum unremarkable. Motor and sensory unremarkable throughout. Exam nonfocal. Psychiatric: Mood and affect are appropriate. Normal thought process. Answering questions appropriately. Notes: *This patient was seen and evaluated during the 2019 SARS-CoV-2 novel coronavirus pandemic period. Community viral transmission is ongoing at time of this encounter and the emergency department is operating under pandemic response procedures. Patient's physical exam is within normal limits. His blood pressure does not require any immediate treatment, 141/72 and pulse 70. EKG is unchanged from previous EKG. He is asymptomatic. Nursing has set him up with a primary care provider for reevaluation and possible blood pressure management if his readings remain borderline. I have talked with the patient about today's findings, in addition to providing specific details for plan of care. Reassessment at the time of disposition demonstrates that the patient is in no acute distress. The patient is stable for discharge, counseling was provided and we discussed in great detail signs and symptoms that would prompt them to return to the Emergency Department. Medication, follow up and supportive care measures were reviewed and discussed. Voices understanding and is agreeable to plan of care. Denies any further questions or concerns at this time. Diagnostics: EKG Therapeutics: None Prescription: None Impression: Encounter for medical screening Plan: 1. You were evaluated today on an emergent basis. Your BP was mildly elevated/borderline. We typically will not treat those numbers in the ER, but we have made you an appointment with a primary care provider for re-evaluation and possible medication management. 2. You can alternate Tylenol and ibuprofen as needed for pain and fever management. 3. If your symptoms should worsen, new symptoms develop or any of the signs and symptoms we discussed should arise please return to the emergency room or call 911 (if needed). Definitive disposition and diagnosis as appropriate pending reevaluation and review of above. shoulders Pain Score (Numeric/FACES): 4 - Related Data Allergies Allergy/AdvReac Type Severity Reaction Status Date / Time ibuprofen Allergy Stomach Verified 12/11/20 11:07 Ache Home Meds: Home Meds Acetaminophen [Tylenol Extra Strength] 1,000 mg PO Q6H PRN 01/27/17 [History] Esomeprazole Magnesium [Nexium 24Hr] 20 mg PO DAILY #14 tablet. 05/16/20 [Rx] Mag Hydrox/Aluminum Hyd/Simeth [Mylanta Maximum Strength Liq] 30 ml PO ASDIRECTED 05/16/20 [History] Omeprazole mg PO DAILY 05/16/20 [History] Past Medical History Gastrointestinal History: Reports: GERD, Other (See Below) Other Gastrointestinal History: gastrointestinal issue, had an egd in 2014, unable to explain exactly what it was for. Psychiatric History: Reports: Anxiety, Other (See Below) Other Psychiatric History: when he lived in [place], heart beating fast, gave him medications - Infectious Disease History Infectious Disease History: Reports: Chicken Pox - Past Surgical History GI Surgical History: Reports: Hernia, Inguinal Social & Family History - Family History Family Medical History: No Pertinent Family History - Caffeine Use Caffeine Use: Reports: None - Recreational Drug Use Recreational Drug Use: No ED ROS GENERAL - Review of Systems Review Of Systems: Comprehensive ROS is negative, except as noted in HPI. ED EXAM, GENERAL - Physical Exam Exam: See Below (See dictation) Course - Vital Signs Last Recorded V/S: Last Vital Signs Temp 97 F 12/11/20 11:04 Pulse 70 12/11/20 11:04 Resp 16 12/11/20 11:04 BP 146/78 H 12/11/20 11:04 Pulse Ox 96 12/11/20 11:04 - Orders/Labs/Meds Orders: Active Orders 24 hr Category Date Time Status EKG Documentation Completion [RC] STAT Care 12/11/20 11:09 Active Departure - Departure Time of Disposition: 11:33 Disposition: Home, Self-Care 01 Clinical Impression: Encounter for medical screening examination Instructions: Hypertension, Adult, [id number] Referrals: PCP,None [Primary Care Provider] - Forms: ED Department Discharge Additional Instructions: The following information is given to patients seen in the emergency department who are being discharged to home. This information is to outline your options for follow-up care. We provide all patients seen in our emergency department with a follow-up referral. The need for follow-up, as well as the timing and circumstances, are variable depending upon the specifics of your emergency department visit. If you don't have a primary care physician on staff, we will provide you with a referral. We always advise you to contact your personal physician following an emergency department visit to inform them of the circumstance of the visit and for follow-up with them and/or the need for any referrals to a consulting specialist. The emergency department will also refer you to a specialist when appropriate. This referral assures that you have the opportunity for follow-up care with a specialist. All of these measure are taken in an effort to provide you with optimal care, which includes your follow-up. Under all circumstances we always encourage you to contact your private physician who remains a resource for coordinating your care. When calling for follow-up care, please make the office aware that this follow-up is from your recent emergency room visit. If for any reason you are refused follow-up, please contact the [facility] Emergency Department at and asked to speak to the emergency department charge nurse. [facility] [address] [place], [place] [id number] [place] [address] Thank you for choosing the [facility] emergency department in [place] for your medical needs today. It was a pleasure caring for you. Today you were seen in the emergency department for elevated blood pressure reading. 1. You were evaluated today on an emergent basis. Your BP was mildly elevated/borderline. We typically will not treat those numbers in the ER, but we have made you an appointment with a primary care provider for re-evaluation and possible medication management. 2. You can alternate Tylenol and ibuprofen as needed for pain and fever management. 3. If your symptoms should worsen, new symptoms develop or any of the signs and symptoms we discussed should arise please return to the emergency room or call 911 (if needed). Sepsis Event Note (ED) - Evaluation Sepsis Screening Result: No Definite Risk - Focused Exam Vital Signs: Vital Signs Temp Pulse Resp BP Pulse Ox 12/11/20 11:04 97 F 70 16 146/78 H 96 - My Orders Last 24 Hours: My Active Orders 12/11/20 11:09 EKG Documentation Completion [RC] STAT - Assessment/Plan Last 24 Hours: My Active Orders 12/11/20 11:09 EKG Documentation Completion [RC] STAT
--- NOTE | 2020-12-14 09:16 | PCM.EKG ---
#1 Interpretation EKG Date: 12/11/20 Time: 11:17 Rhythm: NSR Rate (Beats/Min): 64 [place]: LAD-Left [place] Deviation P-Wave: Present QRS: Normal ST-T: Normal (T wave inversion in leads II,III, aVF, v4-v6) QT: Normal Comparison: No Change (05/16/20) EKG Interpretation Comments: Sinus rhythm with inferior and lateral T wave inversions.
== END 2020-12-11 11:47 | disposition home or self-care (01) ==
LOC: MW.ED 10:58
DX: Z13.89 Encounter for screening for other disorder (principal); K21.9 Gastro-esophageal reflux disease without esophagitis; Z88.6 Allergy status to analgesic agent; Z79.899 Other long term (current) drug therapy
CPT/HCPCS: 93005; 99283-25